=== PATIENT | male | born 1965 | race Caucasian/White ===

== ENCOUNTER 2017-02-15 15:30 | Emergency (ER) | payer OTHER ==
[~2017-02-15] VITALS: Ht 182.9 cm; Wt 92.3 kg
[~2017-02-15 15:30] MED LIST: INSULANT SC; MULT1TAB10 PO
[2017-02-15] MEDS ORDERED: GLUCTAB PO (15:39)
[2017-02-15] MEDS ORDERED: CYCLOBENZAPRINE 10 MG TAB PO ONE (17:30)
[2017-02-15] MEDS ORDERED: CYCL10TA PO (18:17)
[2017-02-15] MEDS ORDERED: IBUP-1022 PO (18:17)
[2017-02-15 18:24] VITALS: BP 143/78
--- NOTE | 2017-02-16 08:41 | REP ---
REASON FOR EXAM: Pain after trauma. AP and lateral views of the hip were obtained with AP and lateral views of the femur. FINDINGS: The joint space is symmetric and relatively well maintained. There is no acute fracture or dislocation. AP and lateral views of the femur show no acute fracture or destructive osseous lesion. Signed by Vance Muniz DO 02/16/2017 08:56 A
== END 2017-02-15 18:46 | disposition home or self-care (01) ==
LOC: M ED 15:30
DX: S76.911A Strain of unspecified muscles, fascia and tendons at thigh level, right thigh, initial encounter (principal); W10.2XXA Fall (on)(from) incline, initial encounter; Y92.099 Unspecified place in other non-institutional residence as the place of occurrence of the external cause; Y93.89 Activity, other specified; Y99.9 Unspecified external cause status; E11.9 Type 2 diabetes mellitus without complications; Z79.4 Long term (current) use of insulin; Z79.899 Other long term (current) drug therapy

== ENCOUNTER → 2017-02-18 | Outpatient (CLI) | payer OTHER ==
[~2017-02-18] MED LIST changes: +CYCL10TA PO; +GLUCTAB PO; +IBUP-1022 PO
--- NOTE | 2017-02-18 19:00 | REPUSA ---
MRI of the right femur Clinical statement: Pain. Technique: Multiecho multiplanar MRI images of the right femur were obtained without administration o f contrast. No comparison is available. Findings: The osseous structures demonstrate normal heterogeneous bone marrow signal. No evidence of fracture or masses are appreciated. The hip and knee joints are well maintained bilaterally. The mallory cular cartilage appears unremarkable. There is evidence of a small joint effusions in both the right hip and right knee. Fluid is seen in the bursa medial and anterior to the knee joint. There is diffus e inflammation, edema, and fluid throughout the quadriceps tendon consistent with a partial tear. The re is mild inflammation demonstrated within the semimembranosus muscle, consistent with a muscle stra in. No evidence of retraction is noted. Impression: 1. Large partial thickness tear of the quadriceps muscles in the anterior compartment. Large amount o f edema, inflammation, and fluid is seen throughout the site. No discrete evidence of muscle retracti on. 2. No acute osseous abnormality. 3. Bursitis anterior and medial to the knee joint. 4. Small right hip and right knee joint effusion.
== END ==
LOC: M RAD 15:18
PROVIDERS: ATTEND Orthopaedic Surgery
DX: S76.111A Strain of right quadriceps muscle, fascia and tendon, initial encounter (principal); X58.XXXA Exposure to other specified factors, initial encounter; Y92.89 Other specified places as the place of occurrence of the external cause; Y93.89 Activity, other specified; Y99.8 Other external cause status; M25.461 Effusion, right knee

== ENCOUNTER 2017-06-05 09:50 | Day surgery (SDC) | payer OTHER ==
[2017-06-05] MEDS: NS 1,000 ML IV (10:07)
[2017-06-05 10:24] LABS: BEDSIDE GLUCOSE 117 MG/DL (70-105)
[2017-06-05] MEDS ORDERED: LIDOCAINE 2% INJ 100 MG/5 ML SDV (FOR ANES.) As Ordered (10:41)
[2017-06-05] MEDS ORDERED: PROPOFOL 200 MG/20 ML VIAL As Ordered (10:41)
== END 2017-06-05 11:32 | disposition home or self-care (01) ==
LOC: M OPP 09:50
DX: Z12.11 Encounter for screening for malignant neoplasm of colon (principal); Z80.0 Family history of malignant neoplasm of digestive organs; D12.2 Benign neoplasm of ascending colon; K57.30 Diverticulosis of large intestine without perforation or abscess without bleeding; E11.9 Type 2 diabetes mellitus without complications; F17.220 Nicotine dependence, chewing tobacco, uncomplicated; Z87.442 Personal history of urinary calculi; Z83.71 Family history of colonic polyps; Z79.899 Other long term (current) drug therapy; Z79.82 Long term (current) use of aspirin; Z79.4 Long term (current) use of insulin
CPT/HCPCS: 45385

== ENCOUNTER → 2017-06-25 | Outpatient (REF) | payer OTHER ==
[2017-06-25 15:41] LABS: BASO % 0.7 % (0.0-1.0); EOS # 0.1 10^3/uL (0.0-0.50); HEMATOCRIT 43.8 % (42.0-52.0); HEMOGLOBIN 15.1 g/dl (13.5-17.5); IMMATURE GRANULOCYTE % 0.3 % (0-3.0); LYMPH # 1.9 10^3/uL (1.5-4.5); LYMPH % 32.1 % (24.0-44.0); MEAN CORPUSCULAR HEMOGLOBIN 31.3 pg (27.0-33.0); MEAN CORPUSCULAR HGB CONC 34.5 g/dl (32.0-36.5); MEAN CORPUSCULAR VOLUME 90.7 fl (80.0-96.0); MONO # 0.4 10^3/uL (0.0-0.8); MONO % 6.1 % (0.0-5.0); NEUTROPHILS # 3.4 10^3/uL (1.8-7.7); NEUTROPHILS % 59.8 % (36.0-66.0); PLATELET COUNT, AUTOMATED 198 10^3/uL (150-450); RED BLOOD COUNT 4.83 10^6/uL (4.30-6.10); RED CELL DISTRIBUTION WIDTH 12.5 % (11.5-14.5); WHITE BLOOD COUNT 5.8 10^3/uL (4.0-10.0)
[2017-06-25 15:58] LABS: C REACTIVE PROTEIN QUANTITATIV < 0.30 MG/DL (0.00-0.30)
[2017-06-25 15:58] LABS: RHEUMATOID FACTOR QUANT < 10.0 IU/ML (<15.0)
[2017-06-25 16:03] LABS: ERYTHROCYTE SEDIMENTATION RATE 13 mm/hr (0-20)
[2017-06-28 00:08] LABS: ANTINUCLEAR ANTIBODIES DIRECT Negative (Negative); Lyme Disease IgG/IgM Antibodie <0.91 ISR (0.00-0.90); Lyme Disease IgM Ab Quantitati <0.80 index (0.00-0.79)
== END ==
LOC: M LABDRAW1 14:05
DX: M75.01 Adhesive capsulitis of right shoulder (principal)

== ENCOUNTER 2021-01-12 09:44 | Outpatient (CLI) | payer OTHER ==
[~2021-01-12] VITALS: Ht 182.9 cm; Wt 92.2 kg
[~2021-01-12 09:44] MED LIST changes: +ACETAMINOPHEN TAB 650MG DOSE (2X325MG) PO ONE; +ALBUTEROL 90 MCG/ACT 8GM HFA INHALER INH PRN; +ALBUTEROL SULFATE 2.5 MG/0.5 ML INH NEB SOLN INH PRN; +AMOX875T PO; +BENZ200C70 PO; +CASIRIVIMAB (REGN10933) 600 MG, IMDEVIMAB (REGN10987) 600 MG in NS 250 ML IV ONE; +CYCL-707 PO; -CYCL10TA PO; +EPINEPHrine INJ 1 MG/ML 1ML AMP IM PRN; +NS 1,000 ML IV SCH; +diphenhydrAMINE 50MG/ML VIAL (J1200) IV PRN; +methylPREDNISolone 125MG 2ML VIAL IV PRN
[2021-01-12 10:15] VITALS: BP 129/76
[2021-01-12 10:45] VITALS: BP 120/70
[2021-01-12 11:30] VITALS: BP 117/67
[2021-01-12 12:34] VITALS: BP 128/69
== END 2021-01-12 12:30 | disposition home or self-care (01) ==
LOC: M OPCLI4PR 09:44
PROVIDERS: ATTEND Family Medicine
DX: U07.1 COVID-19 (principal)

== ENCOUNTER → 2021-11-01 | Outpatient (CLI) | payer OTHER ==
[~2021-11-01] MED LIST changes: -ACETAMINOPHEN TAB 650MG DOSE (2X325MG) PO ONE; -ALBUTEROL 90 MCG/ACT 8GM HFA INHALER INH PRN; -ALBUTEROL SULFATE 2.5 MG/0.5 ML INH NEB SOLN INH PRN; -CASIRIVIMAB (REGN10933) 600 MG, IMDEVIMAB (REGN10987) 600 MG in NS 250 ML IV ONE; -EPINEPHrine INJ 1 MG/ML 1ML AMP IM PRN; -NS 1,000 ML IV SCH; -diphenhydrAMINE 50MG/ML VIAL (J1200) IV PRN; -methylPREDNISolone 125MG 2ML VIAL IV PRN
== END ==
LOC: M PLAIMG 06:43
PROVIDERS: ATTEND Orthopaedic Surgery
DX: M51.36 Other intervertebral disc degeneration, lumbar region (principal); M54.31 Sciatica, right side

== ENCOUNTER → 2021-12-03 | Outpatient (CLI) | payer OTHER | LOC: M PLALAB 09:47 | PROVIDERS: ATTEND Physical Medicine & Rehabilitation | DX: M54.16 Radiculopathy, lumbar region (principal) ==

== ENCOUNTER → 2022-05-10 | Outpatient (CLI) | payer OTHER | LOC: M SLEEP 20:00 | PROVIDERS: ATTEND Physician Assistant Medical | DX: G47.33 Obstructive sleep apnea (adult) (pediatric) (principal) ==

== ENCOUNTER 2023-03-13 06:46 | Day surgery (SDC) | payer OTHER ==
[~2023-03-13] VITALS: Ht 182.9 cm; Wt 91.6 kg
[~2023-03-13 06:46] MED LIST changes: +ASPI81CH33 PO; +ERGO500029 PO; +FLON1SPR NARES; +GABA-1171 PO; +GLYB5TAB6 PO; +GNPTAB36 PO; +HUMA100I5 SC; +LISI5TAB11 PO; +METF500T13 PO; +TRAZ-186 PO
[2023-03-13] MEDS ORDERED: LIDOCAINE 2% 100MG/5ML SDV (FOR ANES.) As Ordered ONE (06:58)
[2023-03-13] MEDS ORDERED: propofoL 200 MG/20 ML VIAL As Ordered ONE (06:58)
[2023-03-13] MEDS: NS 1,000 ML IV ONE (07:20)
[2023-03-13 08:17] VITALS: BP 116/60; TEMP 98.6; O2SAT 98
== END 2023-03-13 08:20 | disposition home or self-care (01) ==
LOC: M OPP 06:46
PROVIDERS: ATTEND Surgery
DX: Z12.11 Encounter for screening for malignant neoplasm of colon (principal); D12.5 Benign neoplasm of sigmoid colon; K57.30 Diverticulosis of large intestine without perforation or abscess without bleeding; Z86.010 Personal history of colon polyps; E11.9 Type 2 diabetes mellitus without complications; I10 Essential (primary) hypertension; G47.30 Sleep apnea, unspecified; Z79.899 Other long term (current) drug therapy; Z79.82 Long term (current) use of aspirin; Z79.4 Long term (current) use of insulin; Z79.84 Long term (current) use of oral hypoglycemic drugs

== ENCOUNTER → 2023-04-10 | Outpatient (CLI) | payer OTHER ==
[~2023-04-10] MED LIST changes: +GASTROGRAFIN SOLUTION 30ML As Ordered ONE; +ISOVUE-370 76% 100ML VIAL As Ordered ONE
== END ==
LOC: M RAD 14:11
PROVIDERS: ATTEND Physician Assistant
DX: R10.13 Epigastric pain (principal); R11.2 Nausea with vomiting, unspecified
CPT/HCPCS: 74178; Q9963; Q9967

== ENCOUNTER → 2023-04-28 | Outpatient (CLI) | payer OTHER ==
[~2023-04-28] MED LIST changes: -GASTROGRAFIN SOLUTION 30ML As Ordered ONE; -ISOVUE-370 76% 100ML VIAL As Ordered ONE
== END ==
LOC: M RAD 13:57
PROVIDERS: ATTEND Internal Medicine Critical Care Medicine
DX: R91.8 Other nonspecific abnormal finding of lung field (principal)

== ENCOUNTER → 2023-05-06 | Outpatient (CLI) | payer OTHER ==
[2023-05-06 11:18] LABS: PLATELET COUNT, AUTOMATED 193 10^3/uL (150-450)
[2023-05-06 11:30] LABS: INR 0.92; PARTIAL THROMBOPLASTIN TIME 23.3 SECONDS (24.8-34.2)
== END ==
LOC: M LAB 10:38
PROVIDERS: ATTEND Internal Medicine Critical Care Medicine
DX: Z01.812 Encounter for preprocedural laboratory examination (principal); R91.8 Other nonspecific abnormal finding of lung field

== ENCOUNTER 2023-05-08 08:13 | Day surgery (SDC) | payer OTHER ==
[~2023-05-08] VITALS: Ht 182.9 cm; Wt 91.1 kg
[2023-05-08] MEDS: NS 1,000 ML IV ONE (08:34)
[2023-05-08 09:03] VITALS: TEMP 96.7
[2023-05-08 09:36] VITALS: BP 129/76; O2SAT 99
== END 2023-05-08 09:44 | disposition home or self-care (01) ==
LOC: M OPP 08:13
PROVIDERS: ATTEND Surgery
DX: K22.70 Barrett's esophagus without dysplasia (principal); K31.89 Other diseases of stomach and duodenum; K21.9 Gastro-esophageal reflux disease without esophagitis; I10 Essential (primary) hypertension; E11.9 Type 2 diabetes mellitus without complications; G47.30 Sleep apnea, unspecified; Z79.82 Long term (current) use of aspirin; Z79.84 Long term (current) use of oral hypoglycemic drugs; Z79.4 Long term (current) use of insulin; Z79.899 Other long term (current) drug therapy

== ENCOUNTER → 2023-05-12 | Outpatient (CLI) | payer OTHER ==
[~2023-05-12] MED LIST changes: +ASPI81TA26 PO; +FAMO40TA3 PO; +GLIM2TAB29 PO; +HOME MED LIST COMPLETE! XX SCH; +LIDOCAINE 1% MDV 20ML VIAL As Ordered ONE
[2023-05-12 08:50] VITALS: TEMP 97.4
[2023-05-12 11:30] VITALS: BP 150/74; O2SAT 98
== END ==
LOC: M IRPRO 08:22
PROVIDERS: ATTEND Internal Medicine Critical Care Medicine
DX: R91.8 Other nonspecific abnormal finding of lung field (principal); J95.811 Postprocedural pneumothorax

== ENCOUNTER → 2024-01-28 | Outpatient (CLI) | payer OTHER ==
[~2024-01-28] MED LIST changes: -HOME MED LIST COMPLETE! XX SCH; -LIDOCAINE 1% MDV 20ML VIAL As Ordered ONE
== END ==
LOC: M RAD 08:28
PROVIDERS: ATTEND Internal Medicine Critical Care Medicine
DX: R91.8 Other nonspecific abnormal finding of lung field (principal)

== ENCOUNTER → 2024-11-22 | Outpatient (CLI) | payer OTHER ==
[~2024-11-22] MED LIST changes: -IBUP-1022 PO; +IBUP600T42 PO
== END ==
LOC: M RAD 08:16
PROVIDERS: ATTEND Internal Medicine Critical Care Medicine
DX: R91.8 Other nonspecific abnormal finding of lung field (principal)